=== PATIENT | female | born 1940 | race Caucasian/White ===

== ENCOUNTER → 2016-07-21 | Outpatient (CLI) | payer MEDICARE, BC ==
[~2016-07-21] MED LIST: ARIMIDEX DPS1 MG PO; CYMBALTA60 MG PO; DILTIAZEM 24HR180 M1 PO; FEOSOL-DPS325 MG PO; FLECAINIDE ACE100 MG PO; FLONASE 0.05% D16 GM NS; PRILOSEC DPS20 MG PO; TAMBOCOR100 MG PO; TIAZAC180 MG PO; TIZANIDINE HCL2 M1 PO; TYLENOL ARTHRI650 MG PO; ULTRAM DPS50 MG PO; VITAMIN D-32000 UNI1 PO; VITAMIN D32000 UNIT PO; VOLTAREN 1% GE100 GM TP; XARELTO20 MG PO; ZANAFLEX2 MG PO
== END | disposition home or self-care (01) ==
LOC: RAD.S 09:40
DX: Z12.31 Encounter for screening mammogram for malignant neoplasm of breast (principal); N63 Unspecified lump in breast; Z85.3 Personal history of malignant neoplasm of breast; Z98.890 Other specified postprocedural states

== ENCOUNTER 2016-09-10 14:13 | Inpatient (IN) | payer MEDICARE, BC ==
[~2016-09-10] VITALS: Ht 157.5 cm; Wt 100.8 kg
--- NOTE | 2016-09-12 10:26 | CO ---
ADMIT: 09/10/2016 RM/LOC: 421 [facility] MR#: [id number] 2620 [facility] [address] [place] [phone] COLE FLOWERS [address] [place] [address] Consultation SEX: F AGE: 76 : 1940 DATE OF CONSULTATION: 09/10/2016 ATTENDING PHYSICIAN: Galindo Haines CONSULTING PHYSICIAN: Paxton Hackett MD HISTORY OF PRESENT ILLNESS: The patient is a very pleasant 76-year-old female, whom I removed a breast cancer little over a year ago, who was at home in her normal state of health. Over the last several days, noticed some black stools. Was found to have hemoglobin of 7.2, Dr. Haines had seen the patient sometime ago, less than three months ago, and she was I believe 11.7 at that time. She is on Xarelto for atrial fibrillation. Does not take any scheduled nonsteroidals. She has had a colonoscopy about three years ago, which reportedly was normal. She stated that I did it, so I will try to review my records back at the office. PAST MEDICAL HISTORY: 1. Breast cancer. 2. Atrial fibrillation. 3. Hypertension. 4. Reflux disease. 5. Arthritis. MEDICATIONS: 1. Flecainide. 2. Diltiazem. 3. Duloxetine. 4. Anastrozole. 5. Xarelto. 6. Tizanidine. 7. Tramadol. 8. Omeprazole. 9. Tylenol. 10.Vitamin D. 11.Flonase. 12.Iron. 13.Voltaren gel. SOCIAL HISTORY: She is a nondrinker, nonsmoker. FAMILY HISTORY: Noncontributory. PAST SURGICAL HISTORY: Includes the breast cancer surgery that I outlined in the history of present illness. PHYSICAL EXAMINATION: VITAL SIGNS: She is afebrile. Vitals stable. ADMIT: 09/10/2016 RM/LOC: 421 [facility] MR#: [id number] 2620 [facility] [address] [place], [place] [address] COLE FLOWERS [address] [place] [address] Consultation SEX: F AGE: 76 : 1940 HEART: Regular. LUNGS: Clear. ABDOMEN: Soft, nondistended, and nontender. EXTREMITIES: She had no peripheral edema. NEURO: No focal neurologic deficits. ASSESSMENT AND PLAN: The patient is a 76-year-old female with anemia, melena, who denies nausea, vomiting, appetite or weight changes. Denies abdominal pain. Denies bright red blood per rectum. Our plan is for upper endoscopy evaluation tomorrow morning. Risks and benefits were discussed. I discussed possibly myself or one of my partners carrying this out for her, she understood. Paxton Hackett MD/ olman JOB #: [id number] CC: Galindo Haines, Attending Physician Galindo Haines, Family Physician
--- NOTE | 2016-09-12 14:51 | DS ---
ADMIT: 09/10/2016 RM/LOC: 421 [facility] MR#: [id number] [address] [facility] [address] [place], [place] [address] KENNETH FLOWERSINE Becki [address] [place] [address] Discharge Summary SEX: F AGE: 76 : 1940 ADMISSION DATE: 09/10/2016 DISCHARGE DATE: 09/12/2016 CONSULTATIONS: General Surgery. PROCEDURES: She underwent an EGD. FINAL DIAGNOSES: 1. GI (gastrointestinal) bleed. 2. Acute blood loss anemia. 3. Atrial fibrillation. 4. History of breast cancer. 5. History of diastolic heart failure. 6. Chronic back pain. HISTORY OF PRESENT ILLNESS: The patient is a fantastic 76-year-old female, who came into the office with increasing weakness. Found to have a lower hemoglobin than her baseline of normal. Admitted for further stabilization. HOSPITAL COURSE: She had had reported melena. Had decreased hemoglobin. She was monitored. It got as low 7.1. Got a unit of blood. [place] a little bit better. Overall, did not have any more melena. Had an EGD, which was essentially negative. Had her Xarelto held. Overall, felt safe and stable for discharge to home. She had a colonoscopy three years ago. Given her anemia and without cause at this time, we will discharge her with plans for outpatient C-scope. She will follow up with me in the next 10-14 days in the clinic with a repeat CBC at that time. DISCHARGE MEDICATIONS: Please see discharge MAR, which I fully reviewed. Essentially, she will be off of her Xarelto for 7 days. Galindo aHines MD/ lanny JOB #: [id number] CC: Galindo Haines MD, Attending Physician Galindo J Haines, MD, Family Physician
--- NOTE | 2016-09-12 14:51 | HP ---
ADMIT: 09/10/2016 RM/LOC: 421 [facility] MR#: [id number] 2620 [facility] [address] [place] [phone] COLE FLOWERS [address] [place] [address] History and Physical SEX: F AGE: 76 : 1940 DATE OF SERVICE: CHIEF COMPLAINT: Weakness and shortness of breath. HISTORY OF PRESENT ILLNESS: The patient is a very pleasant, 76-year-old female, who normally resides at home, who over the last couple of weeks has just really not felt well. Increasing shortness of breath. Increasing weakness. Initially, felt like she had a cold, was placed on some steroids. This was about a week ago. Has progressively gotten worse. Has a bout or two of some black tarry stools as she remembers. No hematochezia reported. No hematemesis. No major nausea. She is on a PPI chronically. No NSAIDs. Is on Xarelto for atrial fibrillation. Otherwise, no chest pain recently. No new palpitations other than her heart goes rapid when she is doing any sort of minimal amount of exertion recently. No fevers. No chills. PAST MEDICAL HISTORY: 1. Hypertension. 2. History of spinal stenosis, chronic back pain. 3. Osteopenia. 4. Hyperlipidemia. 5. DNR. 6. History of breast cancer in 2016, status post lumpectomy. 7. GERD. 8. Anxiety. 9. Chronic atrial fibrillation, on chronic anticoagulation. MEDICATIONS: Please see list for full details but includes: 1. Xarelto. 2. Omeprazole. 3. Tizanidine. 4. Tramadol. 5. Flonase. 6. Ferrous sulfate. 7. Flecainide. 8. Diltiazem. 9. Duloxetine. 10.Anastrozole. FAMILY HISTORY: Significant for cancer in her mother and father. Unknown type. Mother with diabetes. Heart disease in her mother. SOCIAL HISTORY: She is a nonsmoker. Lives at home with her and essentially is primary caregiver. PAST SURGICAL HISTORY: Appendectomy, cholecystectomy, hernia repair, joint replacement of the knee, and lumpectomy of left breast. REVIEW OF SYSTEMS: As per HPI. Otherwise, completely reviewed and negative. ADMIT: 09/10/2016 RM/LOC: 421 [facility] MR#: [id number] 2620 [facility] [address] [place] [phone] COLE FLOWERS [address] [place] [address] History and Physical SEX: F AGE: 76 : 1940 PHYSICAL EXAMINATION: VITAL SIGNS: Temperature 96.9, pulse 60, respiratory rate 20, blood pressure 152/80, O2 saturation 99% on room air. GENERAL: She is alert and oriented x3. No acute distress. Very pleasant as always but appears a little more ashen and ill-appearing than usual. HEENT: Normocephalic, atraumatic. Pupils equal, round, and reactive to light and accommodation. Extraocular muscles intact. Dry mucous membranes. NECK: No lymphadenopathy. Soft and supple. Trachea midline. LUNGS: Clear to auscultation bilaterally. No wheezes, rales, or rhonchi. HEART: Regular rate and rhythm. No murmurs, rubs, or gallops. ABDOMEN: Soft, nontender, and nondistended. Bowel sounds present. EXTREMITIES: No cyanosis, clubbing, or edema. MUSCULOSKELETAL: 5/5 strength in all 4 extremities. NEUROLOGICAL: No focal deficits noted. Cranial nerves II through XII are grossly intact. SKIN: No rashes noted. LABORATORY AND X-RAY DATA: Her hemoglobin is 8.4, white blood count is 8.5, platelets are 361. Her BMP shows a sodium of 142, potassium 4.5, chloride 107, creatinine of 0.7. ASSESSMENT: 1. Presumed GI bleed, upper. 2. Acute blood loss anemia with a baseline hemoglobin of 13.2 8 months ago, now 8.4. Symptomatic. 3. Atrial fibrillation. 4. On anticoagulation. 5. History of diastolic heart failure without acute exacerbation. 6. History of breast cancer. PLAN: At this point in time, we will hold her Xarelto. Have General Surgery see her for hopeful EGD given her symptomatic anemia and more recent worsening over the last week or two. We will transfuse her as needed, but we will watch her hemoglobin and trend it. The patient is agreeable to plan. Clears diet only until Surgery sees her. Galindo Haines MD/ olman JOB #: [id number] CC: Galindo Haines, Attending Physician Galindo Haines, Family Physician
[2016-09-14] MEDS ORDERED: CYMBALTA60 MG PO (13:50)
[2016-09-14] MEDS ORDERED: TAMBOCOR100 MG PO (13:50)
[2016-09-14] MEDS ORDERED: TIAZAC180 MG PO (13:51)
[2016-09-14] MEDS ORDERED: XARELTO20 MG PO (13:52)
[2016-09-14] MEDS ORDERED: TIZANIDINE HCL2 M1 PO (13:52)
[2016-09-14] MEDS ORDERED: ARIMIDEX DPS1 MG PO (13:52)
[2016-09-14] MEDS ORDERED: TYLENOL ARTHRI650 MG PO (13:53)
[2016-09-14] MEDS ORDERED: ULTRAM DPS50 MG PO (13:53)
[2016-09-14] MEDS ORDERED: PRILOSEC DPS20 MG PO (13:53)
[2016-09-14] MEDS ORDERED: FEOSOL-DPS325 MG PO (13:54)
[2016-09-14] MEDS ORDERED: FLONASE 0.05% D16 GM NS (13:54)
[2016-09-14] MEDS ORDERED: VITAMIN D32000 UNIT PO (13:54)
[2016-09-14] MEDS ORDERED: VOLTAREN 1% GE100 GM TP (13:55)
--- NOTE | 2016-09-16 13:29 | OR ---
ADMIT: 09/10/2016 RM/LOC: 421 [facility] MR#: [id number] 2620 [facility] [address] [place] [phone] COLE FLOWERS [address] [place] [address] Operative/Delivery Room Report SEX: F AGE: 76 : 1940 SURGERY DATE: 09/11/2016 SURGEON: Enoc Longoria MD PREOPERATIVE DIAGNOSIS: Anemia. POSTOPERATIVE DIAGNOSIS: Large hiatal hernia, but no signs of ulcers, masses, lesions, or reason for anemia. No active or recent sites of bleeding noted. PROCEDURE: EGD. ANESTHESIA: MAC. ESTIMATED BLOOD LOSS: None. INDICATION FOR PROCEDURE: Please see H and P, consult, and chart. DESCRIPTION OF PROCEDURE: After the risks, benefits, possible complications, and the alternatives had been explained, and informed consent had been obtained, the patient was taken back to the procedure room, underwent sedation. The flexible EGD scope was introduced. GE junction seen in the first picture, then just in there in picture #3, you can see this good sized hiatal hernia. Maneuvered through here, down into the stomach and down into the second portion of the duodenum seen in the first picture. The duodenum and duodenal bulb, all appears okay. No ulcers, masses, or lesions as well as the antrum. On retroflexed view, so between picture #2 and #3, you can see from above and below, a good sized probably 8-10 cm hiatal hernia, but there was no Dao's ulcers that I could see. No other mass. No lesion. No sites of recent bleeding. No old blood. Nothing I could save given her recent anemia as a cause. I did not see enough irritation, I even did biopsies. The scope was slowly withdrawn inspecting the remainder of the esophagus and stomach on the way out. The procedure was terminated, tolerated it well, and was taken to recovery room in stable and satisfactory condition. Enoc Longoria MD/ olman JOB #: [id number] CC: Galindo Haines, Attending Physician Galindo Haines, Family Physician Galindo Haines MD
[2016-10-12] MEDS ORDERED: CYMBALTA60 MG PO (15:23)
[2016-10-12] MEDS ORDERED: FLECAINIDE ACE100 MG PO (15:23)
[2016-10-12] MEDS ORDERED: DILTIAZEM 24HR180 M1 PO (15:24)
[2016-10-12] MEDS ORDERED: ARIMIDEX DPS1 MG PO (15:24)
[2016-10-12] MEDS ORDERED: ZANAFLEX2 MG PO (15:24)
[2016-10-12] MEDS ORDERED: ULTRAM DPS50 MG PO (15:24)
[2016-10-12] MEDS ORDERED: TYLENOL ARTHRI650 MG PO (15:25)
[2016-10-12] MEDS ORDERED: VITAMIN D-32000 UNI1 PO (15:25)
[2016-10-12] MEDS ORDERED: PRILOSEC DPS20 MG PO (15:25)
[2016-10-12] MEDS ORDERED: FEOSOL-DPS325 MG PO (15:26)
[2016-10-12] MEDS ORDERED: FLONASE 0.05% D16 GM NS (15:26)
[2016-10-12] MEDS ORDERED: VOLTAREN 1% GE100 GM TP (15:27)
== END 2016-09-12 11:25 | disposition home or self-care (01) | DRG 378 ==
LOC: 4PCU 14:13
PROVIDERS: ADMIT Internal Medicine
PROC: 0DJ08ZZ Inspection of Upper Intestinal Tract, Via Natural or Artificial Opening Endoscopic (ICD-10-PCS; principal; 2016-09-11)
PROC: 30233N1 Transfusion of Nonautologous Red Blood Cells into Peripheral Vein, Percutaneous Approach (ICD-10-PCS; principal; 2016-09-11)
DX: K92.1 Melena (principal); D62 Acute posthemorrhagic anemia; I48.2 Chronic atrial fibrillation; I11.0 Hypertensive heart disease with heart failure; Z68.41 Body mass index [BMI] 40.0-44.9, adult; I50.32 Chronic diastolic (congestive) heart failure; K44.9 Diaphragmatic hernia without obstruction or gangrene; M48.00 Spinal stenosis, site unspecified; E66.9 Obesity, unspecified; M85.80 Other specified disorders of bone density and structure, unspecified site; E78.5 Hyperlipidemia, unspecified; F41.9 Anxiety disorder, unspecified; M19.90 Unspecified osteoarthritis, unspecified site; K21.9 Gastro-esophageal reflux disease without esophagitis; Z66 Do not resuscitate; Z85.3 Personal history of malignant neoplasm of breast; Z79.01 Long term (current) use of anticoagulants

== ENCOUNTER 2016-10-09 15:47 | Inpatient (IN) | payer MEDICARE, BC ==
[~2016-10-09] VITALS: Ht 157.5 cm; Wt 99.8 kg
--- NOTE | ~2016-10-09 | CO ---
ADMIT: 10/09/2016 RM/LOC: 424 [facility] MR#: [id number] 2620 [facility] [address] [place] [phone] LAURA FLOWERS [address] [place] [address] Consultation SEX: F AGE: 76 : 1940 DATE OF CONSULTATION: 10/10/2016 ATTENDING PHYSICIAN: Galindo Haines CONSULTING PHYSICIAN: Issac Moralez MD ADDENDUM: I reviewed John Pizarro's note and I am in agreement with his documentation including assessment and plan. I have also seen Laura personally, evaluated her, and reviewed her chart. I reviewed her recent endoscopy studies and discussed this with her prior endoscopist. After reviewing things, it would seem indicated to proceed with repeat EGD for re- evaluation to see if she has developed Dao ulcerations related to her hiatal hernia. If that were negative for source of the potential blood loss anemia, we would plan for outpatient pill capsule endoscopy to evaluate small bowel sources as the etiology. If she has more rapid bleeding during the hospitalization, we would consider tagged red blood cell scan to try to identify a source. I discussed this as the plan in detail with Laura and she agrees with that. Issac Moralez MD/ olman JOB #: [id number] CC: Galindo Haines, Attending Physician Galindo Haines, Family Physician
[~2016-10-09 15:47] MED LIST changes: -DILTIAZEM 24HR180 M1 PO; -FLECAINIDE ACE100 MG PO; -VITAMIN D-32000 UNI1 PO; -ZANAFLEX2 MG PO
--- NOTE | 2016-10-10 16:58 | HP ---
ADMIT: 10/09/2016 RM/LOC: 424 [facility] MR#: [id number] 1500 [facility] [address] [place] [phone] COLE FLOWERS [address] [place] [address] History and Physical SEX: F AGE: 76 : 1940 DATE OF SERVICE: CHIEF COMPLAINT: Shortness of breath. HISTORY OF PRESENT ILLNESS: This is a 76-year-old female. She presented to the emergency room with shortness of breath. She has been seen and monitored for some anemia over the last month. Earlier this month, she was admitted with a hemoglobin in the 7s with similar feelings. When she has these feelings of shortness of breath, it is associated with some chest pressure, radiates to her back and down to middle of her back and even into her shoulders. She describes it as a severe tightness. Yesterday, she saw a nurse practitioner in her office showing a hemoglobin of 8.2, which was down from her previous one. She reports after her last hospitalization during which she had an EGD, she did have a colonoscopy which was unremarkable. She then had her hemoglobin come up to about 10. Ultimately, she restarted her Xarelto and she says that is when her blood count started going down. Yesterday, it started to feel so severe, she sought care. She was given an iron infusion today. She was still feeling bad, so she presented to the emergency room. Initial workup did not show anything acute. On her EKG, she has history of atrial fibrillation. She looks like she has an inferior Q-wave in lead III, otherwise normal sinus rhythm. She has a little bit of PAC one time on that EKG. Hemoglobin was 7.2, creatinine is 1.2. Past history, social history, and family history reviewed for last H and P which was done just a few weeks ago and it was negative. REVIEW OF SYSTEMS: Other complete review of systems obtained and negative except as above. PHYSICAL EXAMINATION: VITAL SIGNS: Temp 99.1, pulse 68, respirations 20, blood pressure 169/76, oxygen saturation 100% on room air. GENERAL: This is a well-appearing 76-year-old female. She is in no apparent distress. She is alert and oriented. She is wearing glasses. HEENT: Pupils are equal, round, and reactive to light and accommodation. Extraocular muscles are intact. Her throat is clear. NECK: Supple. Trachea midline. Thyroid not palpable. HEART: Regular rate and rhythm. LUNGS: Diminished, but clear bilaterally. ABDOMEN: Protuberant soft, without any tenderness. EXTREMITIES: Lower extremities have 2+ lower extremity edema. SKIN: Pale, warm, and dry. MUSCULOSKELETAL: She can move all extremities equally bilaterally. She has some changes of arthritis in her joints. ASSESSMENT: 1. Shortness of breath. ADMIT: 10/09/2016 RM/LOC: 424 [facility] MR#: [id number] [address] [place] [phone] COLE FLOWERS [address] [place] [address] History and Physical SEX: F AGE: 76 : 1940 2. Anemia, acute on chronic blood loss. 3. Atrial fibrillation. 4. Anticoagulation. PLAN: She will be admitted to the hospital, typed and crossed 1 unit. I am going to do a CT scan of her chest, abdomen, and pelvis. She has history of breast cancer. So, we will be mindful that she may have some metastatic disease somewhere causing this bleeding. I think she may need a repeat upper scope just to be certain we are not missing something. We will do fecal occult blood just to try to make sure we know that her bleeding has come from a GI source. We will do a Surgery consult in the morning for that and treat her with a PPI. Hai Johnson MD/ olman JOB #: [id number] CC: Galindo Haines, Attending Physician Galindo Haines, Family Physician
--- NOTE | 2016-10-12 08:54 | DS ---
ADMIT: 10/09/2016 RM/LOC: 424 [facility] MR#: [id number] 2620 [facility] [address] [place], [place] [phone] [place] [address] Discharge Summary SEX: F AGE: 76 : 1940 ADMISSION DATE: 10/09/2016 DISCHARGE DATE: 10/11/2016 FINAL DIAGNOSES: 1. Shortness of breath. 2. Weakness. 3. Anemia of acute blood loss. 4. Atrial fibrillation. 5. Anticoagulation with Xarelto. 6. Hiatal hernia. 7. Hypertension. REASON FOR ADMISSION: This is a 76-year-old female who presented with increased weakness and shortness of breath, found to have a hemoglobin of 7.2. This has been drifting down over the previous few days. See history and physical for further details. HOSPITAL COURSE: The patient was admitted and placed on a clear liquid diet. She had one unit of packed cells transfused. She had a CT scan of her chest, abdomen, and pelvis. This showed a pancreatic cyst and they recommend further workup for that in the future. We had a surgery consult and they did a repeat EGD showing a large hiatal hernia. No acute bleeding. Hemoglobin was 8.6 on discharge day. She was feeling very well. We thought as long she stayed off her Xarelto for the time being, she would do better. Discharge medications: 1. Arimidex 1 mg daily. 2. Cymbalta 60 mg daily. 3. Omeprazole 20 mg daily. 4. Flecainide 100 mg b.i.d. 5. Cardizem CD 180 mg daily. 6. Flonase 2 sprays each nostril daily. 7. Tizanidine 2 mg q.8h p.r.n. 8. Tramadol 50 mg q.6h p.r.n. 9. Tylenol Arthritis 650 mg q.8h p.r.n. 10.Vitamin D3 2000 units daily. 11.Iron 325 mg with breakfast. 12.Voltaren gel applied daily p.r.n. She should set up a small bowel series x-ray for this coming week. She also may need evaluation for her pancreatic cyst in the future as well. Follow up with Dr. Haines in less than one week with a CBC. Follow up with the surgeons in about two weeks for followup on her procedure as well as possible capsule endoscopy. Hai Johnson MD/ [place] JOB #: [id number] CC: Galindo Haines MD, Attending Physician ADMIT: 10/09/2016 RM/LOC: 424 [facility] MR#: [id number] [address] [address] KRISTIECOLE BOOTH [facility] [place] [address] Discharge Summary SEX: F AGE: 76 : 1940 Galindo Haines MD, Family Physician
[2016-10-12] MEDS ORDERED: FLECAINIDE ACE100 MG PO (15:23)
[2016-10-12] MEDS ORDERED: CYMBALTA60 MG PO (15:23)
[2016-10-12] MEDS ORDERED: DILTIAZEM 24HR180 M1 PO (15:24)
[2016-10-12] MEDS ORDERED: ARIMIDEX DPS1 MG PO (15:24)
[2016-10-12] MEDS ORDERED: ULTRAM DPS50 MG PO (15:24)
[2016-10-12] MEDS ORDERED: ZANAFLEX2 MG PO (15:24)
[2016-10-12] MEDS ORDERED: PRILOSEC DPS20 MG PO (15:25)
[2016-10-12] MEDS ORDERED: TYLENOL ARTHRI650 MG PO (15:25)
[2016-10-12] MEDS ORDERED: VITAMIN D-32000 UNI1 PO (15:25)
[2016-10-12] MEDS ORDERED: FEOSOL-DPS325 MG PO (15:26)
[2016-10-12] MEDS ORDERED: FLONASE 0.05% D16 GM NS (15:26)
[2016-10-12] MEDS ORDERED: VOLTAREN 1% GE100 GM TP (15:27)
--- NOTE | 2016-10-13 07:54 | OR ---
ADMIT: 10/09/2016 RM/LOC: 424 [facility] MR#: [id number] [address] [facility] [address] [place] [phone] NOELLE FLOWERSHERINE Becki [address] [place] [address] Operative/Delivery Room Report SEX: F AGE: 76 : 1940 SURGERY DATE: 10/11/2016 SURGEON: Issac Moralez MD PREOPERATIVE DIAGNOSIS: Anemia. POSTOPERATIVE DIAGNOSES: 1. Large hiatal hernia. 2. No gastric ulcers or duodenal ulcerations or source of anemia. PROCEDURE: Esophagogastroduodenoscopy. ANESTHESIA: IV general. DESCRIPTION OF PROCEDURE: The patient was taken to the endoscopy suite and placed left side down on her hospital cart. A bite-block was placed and IV sedation was established. The upper endoscope was advanced through the oropharynx into the esophagus without difficulty. The scope was pushed under visualization to the stomach. Air was used to insufflate the stomach. The pylorus was intubated. The first, second, and third portions of the duodenum were examined and appeared normal. No inflammatory change or ulceration was seen. The scope was withdrawn to the stomach. The antrum and body appeared normal. On retroflexion of the scope, there was a large hiatal hernia. There was no evidence of Dao ulceration seen. The scope was withdrawn to the gastroesophageal junction. The Z-line appeared normal as did the remainder of the esophageal mucosa upon withdrawal of the scope. The patient tolerated the procedure well and transferred to the recovery area in stable condition. PLAN: We would recommend outpatient followup for capsule endoscopy next week for completion evaluation of the GI tract. Issac Moralez MD/ olman JOB #: [id number] CC: Galindo Haines, Attending Physician Galindo J Haines, Family Physician
--- NOTE | 2016-10-15 14:24 | ER ---
ADMIT: 10/09/2016 RM/LOC: 424 [facility] MR#: [id number] 2620 [facility] [address] [place], [place] [phone] LAURA FLOWERS [address] [place] [address] Emergency Room Report SEX: F AGE: 76 : 1940 DATE: 10/09/2016 HISTORY OF PRESENT ILLNESS: Laura is a 76-year-old female, who presents to the emergency room complaining of shortness of breath. She says she has had a history of anemia. She has had EEG. She has had colonoscopy, and they had not been able to find out where she is bleeding from. She received a shot of iron yesterday and had had blood transfusions since September 11. Her hemoglobin yesterday was 8, and she has had some dyspnea on exertion. She states that her mouth is so dried. It feels like she is tasting metal. REVIEW OF SYSTEMS: Anxiety. PAST MEDICAL HISTORY: Atrial fibrillation, hypertension, hyperlipidemia, anemia, breast cancer in 2016, osteopenia, spinal stenosis chronic, and chronic anticoagulation with Plavix. PAST SURGICAL HISTORY: Appendectomy, cholecystectomy, bilateral knees, hernia repair, and lumpectomy left breast. MEDICATIONS: See T-sheet, which includes Xarelto. SOCIAL HISTORY: Alcohol occasionally. FAMILY HISTORY: She has a family history of CAD and cancer and diabetes. PHYSICAL EXAMINATION: VITAL SIGNS: Blood pressure 189/81, heart rate 72, respirations 16, temp is 99.7, and O2 sats 99%. GENERAL: Mildly anxious. Very pleasant. Family at bedside. HEENT: Dry oral mucosa. NECK: Supple. RESPIRATIONS: No distress. CVS: Regular in rate and rhythm. ABDOMEN: Nontender. No ascites. No organomegaly. SKIN: Good color and turgor. EXTREMITIES: Edema bilaterally 3+. NEUROLOGIC: Oriented x4. Mood and affect appropriate. LABORATORY DATA: WBC within normal limits and hemoglobin of 7.2, hematocrit is 23.4, and platelets 315. Her chemistry; glucose 124, creatinine is 1.2, GFR is 45, BNP is 575 with a UA showing leukocytes 2+ and wbc's 3. Culture ADMIT: 10/09/2016 RM/LOC: 424 [facility] MR#: [id number] 2620 [facility] [address] [place] [phone] KRISTIE LAURA A [address] [place] [address] Emergency Room Report SEX: F AGE: 76 : 1940 and sensitivity to follow. EKG; 62 beats per minute with atrial premature complexes. X-ray; wide mediastinum, left opacity. CLINICAL IMPRESSION: 1. Shortness of breath. 2. Anemia. 3. Urinary tract infection. 4. Shortness of breath with exertion. Dr. Johnson was contacted for Dr. Haines, and orders received. The patient will be going to telemetry. Two units of blood have been ordered and put on hold. Dr. Haines to come into the hospital and see the patient. KIKI Fernández / Trevor Akbar MD / olman JOB #: [id number] CC: Galindo Haines MD, Attending Physician Galindo Haines MD, Family Physician
--- NOTE | 2016-10-22 09:10 | CO ---
ADMIT: 10/09/2016 RM/LOC: 424 [facility] MR#: [id number] [facility] [address] [place] [id number] LAURA FLOWERS [address] [place] [address] Consultation SEX: F AGE: 76 : 1940 DATE OF CONSULTATION: 10/10/2016 ATTENDING PHYSICIAN: Galindo Haines CONSULTING PHYSICIAN: Issac Moralez MD REASON FOR CONSULTATION: Anemia, acute GI blood loss. HISTORY OF PRESENT ILLNESS: Laura is a 76-year-old female, who has been having ongoing issues of anemia going on for about a month now. She actually was scoped approximately 3 to [address] Longoria with an EGD and Dr. Hackett with colonoscopy and at that time, there were negative findings. She has noticed significant weakness for the last month. She denies any nausea, vomiting, or pain. She does have some discomfort in her abdomen at one spot located above the epigastric region and just lateral to that. She takes iron pills and so she has noticed her stool being black, but she is adamant that she has not seen any dried blood or bright red blood in her stools. She does notice some metallic taste in her mouth. She denies any bowel changes. PAST MEDICAL HISTORY: Significant for: 1. Hypertension. 2. GERD. 3. Anxiety. 4. Atrial fibrillation. 5. Hyperlipidemia. 6. Osteopenia. 7. Spinal stenosis. 8. Chronic back pain. PAST SURGICAL HISTORY: 1. Previous endoscopy 3 to 4 weeks ago. Please see HPI. 2. Lumpectomy. ALLERGIES: NO KNOWN DRUG ALLERGIES. MEDICATIONS: On Xarelto. The patient denies any other blood thinning medications. FAMILY HISTORY: Noncontributory. SOCIAL HISTORY: The patient denies any tobacco, alcohol, or illicit drug use. REVIEW OF SYSTEMS: CONSTITUTIONAL: The patient states weakness, but denies any fever, chills, night sweats, headache, lightheadedness, or shortness of breath. The rest of comprehensive 10-point review of systems was performed and all other systems were negative. ADMIT: 10/09/2016 RM/LOC: 424 [facility] MR#: [id number] [address] [id number] LAURA FLOWERS [address] [place] [address] Consultation SEX: F AGE: 76 : 1940 PHYSICAL EXAMINATION: GENERAL: The patient is in no acute distress. She is alert and oriented. HEENT: Head is normocephalic and atraumatic. EOMS are intact. Conjunctivae free of icterus, erythema, or pallor. Pinnae, free of deformities. Nose, midline. No tracheal deviation. NECK: Supple. SKIN: Negative for jaundice, clubbing, edema, pallor, or cyanosis. LUNGS: Normal respiratory effort. HEART: Distal pulses intact. Regular rate and rhythm. ABDOMEN: Soft and nondistended, mild tenderness in the epigastric region. NEURO: Grossly intact. LABORATORY DATA: Current hemoglobin is 8.1. ASSESSMENT: Anemia, acute GI blood loss. PLAN: Currently, the patient has received 1 unit of PRBCs and has elevated the hemoglobin. I will discuss with Dr. Moralez if endoscopy is warranted at this time as she just had this performed about a month ago or if we should proceed with tagged red blood cell scan. The patient is in agreement of this plan, had all her questions answered, would like to proceed. Thank you for the consultation of this patient. KIKI Mendoza / Issac Moralez MD / olman JOB #: [id number] CC: Galindo Haines, Attending Physician Galindo Haines, Family Physician
== END 2016-10-11 13:17 | disposition home or self-care (01) | DRG 378 ==
LOC: ER 15:47 → 4PCU 18:00
PROVIDERS: ADMIT Internal Medicine
PROC: 0DJ08ZZ Inspection of Upper Intestinal Tract, Via Natural or Artificial Opening Endoscopic (ICD-10-PCS; principal; 2016-10-11)
DX: K92.2 Gastrointestinal hemorrhage, unspecified (principal); D62 Acute posthemorrhagic anemia; K86.2 Cyst of pancreas; I48.91 Unspecified atrial fibrillation; I10 Essential (primary) hypertension; F41.9 Anxiety disorder, unspecified; K44.9 Diaphragmatic hernia without obstruction or gangrene; K21.9 Gastro-esophageal reflux disease without esophagitis; E78.5 Hyperlipidemia, unspecified; M85.80 Other specified disorders of bone density and structure, unspecified site; M48.00 Spinal stenosis, site unspecified; Z79.01 Long term (current) use of anticoagulants; Z96.653 Presence of artificial knee joint, bilateral; Z82.49 Family history of ischemic heart disease and other diseases of the circulatory system; Z85.3 Personal history of malignant neoplasm of breast